=== PATIENT | female | born 1960 | race Caucasian/White ===

== ENCOUNTER 2016-03-29 14:19 | Emergency (ER) | payer BC ==
--- NOTE | 2016-03-29 14:39 | UC ---
Upper Extremity HPI - HPI Summary HPI Summary: complaint of left elbow that started 2 days ago has become red and swollen and has pain that radiates up her arm pain is on the outside around callous doesn't hurt with movement of joint both elbows have callouses from leaning on her desk denies fever and chills not taking any medications for pain - History of Current Complaint Chief Complaint: UCUpperExtremity Stated Complaint: LEFT ELBOW PAIN Time Seen by Provider: 03/29/16 14:24 Hx Obtained From: Patient Character: Aching - Allergies/Home Medications Allergies/Adverse Reactions: Allergies Allergy/AdvReac Type Severity Reaction Status Date / Time Coconut Oil Allergy Vomiting Verified 03/29/16 14:27 horseraddish Allergy Vomiting Uncoded 03/29/16 14:27 Home Medications: Home Medications Cetirizine* [ZyrTEC*] 10 mg PO DAILY PRN 03/29/16 [History Confirmed 03/29/16] Fluticasone NASAL SPRAY 50MCG* [Flonase NASAL SPRAY 50MCG*] 2 spray BOTH NARES DAILY PRN 03/29/16 [History Confirmed 03/29/16] PMH/Surg Hx/FS Hx/Imm Hx Previously Healthy: Yes - Surgical History Surgical History: Yes Surgery Procedure, Year, and Place: Appendectomy, 2010, [place] - Family History Known Family History: Positive: Diabetes - father Negative: Cardiac Disease, Hypertension - Social History Occupation: Employed Full-time Lives: With Family Alcohol Use: Daily Substance Use Type: None Smoking Status (MU): Heavy Every Day Tobacco Smoker Type: Cigarettes Amount Used/How Often: 1 PPD Length of Time of Smoking/Using Tobacco: 43 Years Have You Smoked in the Last Year: Yes Household Exposure Type: Cigarettes Cessation Counseling: Patient Advised to Stop - Immunization History Most Recent Influenza Vaccination: Not the 2016/2016 Season Review of Systems Constitutional: Negative Skin: Rash Eyes: Negative ENT: Negative Respiratory: Negative Cardiovascular: Negative Gastrointestinal: Negative Genitourinary: Negative Motor: Negative Neurovascular: Negative Musculoskeletal: Negative Neurological: Negative Psychological: Negative All Other Systems Reviewed And Are Negative: Yes Physical Exam Triage Information Reviewed: Yes Appearance: No Pain Distress, Well-Nourished Vital Signs: Initial Vital Signs Temp 98.7 F 03/29/16 14:25 Pulse 90 03/29/16 14:25 Resp 18 03/29/16 14:25 BP 126/77 03/29/16 14:25 Pulse Ox 98 03/29/16 14:25 Vital Signs Reviewed: Yes Eyes: Positive: Conjunctiva Clear ENT: Positive: Pharynx normal, Nasal congestion, TMs normal Neck: Positive: No Lymphadenopathy Respiratory: Positive: Lungs clear, Normal breath sounds, No respiratory distress Cardiovascular: Positive: RRR, No Murmur, Pulses Normal Abdomen Description: Positive: Nontender, Soft Bowel Sounds: Positive: Present Musculoskeletal: Positive: Other: - LUE- elbow callous with erythema- no fluctunat area beneath pain not increased with movement of elbow Neurological: Positive: Alert Psychological Exam: Normal Skin Exam: Normal Upper Extremity Course/Dx - Course Course Of Treatment: exam completed. infection appears to only involve the callous and not the joint. will treat with bactrim. if no improvement will followup with ortho d/t risk of joint involvement - Differential Dx/Diagnosis Differential Diagnosis/HQI/PQRI: Contusion, Septic Arthritis, Other - cellulitis Provider Diagnoses: cellulitis Discharge - Discharge Plan Condition: Stable Disposition: HOME Prescriptions: Sulfamethox/Trimethoprim DS* [Bactrim DS 800/160 TAB*] 1 tab PO BID #14 tab Patient Education Materials: Cellulitis (ED) Referrals: All Bower MD [Medical Doctor] - Additional Instructions: Please take antibiotic as directed. Increase fluids and rest Take acetaminophen for fever or pain Please review your discharge instructions. If your pain increase please call Venkat Bower for further evaluation and treatment If your symptoms do not improve please call your primary care provider or return to urgent care.
[2016-03-29 14:57] VITALS: BP 126/77
== END 2016-03-29 14:57 | disposition home or self-care (01) ==
LOC: UCCORT 14:19
DX: L03.114 Cellulitis of left upper limb (principal); F17.210 Nicotine dependence, cigarettes, uncomplicated
CPT/HCPCS: 99202; G0463

== ENCOUNTER 2018-04-04 11:32 | Emergency (ER) | payer BC ==
[2018-04-04 11:55] VITALS: BP 142/80
--- NOTE | 2018-04-04 12:14 | UC ---
Ear Complaint HPI - HPI Summary HPI Summary: Pt c/o bilateral ear fullness, pain, cough sinus and nasal congestion X 2 days. Has taken OTC sudafed X 2 in the last 2 days. - History of Current Complaint Chief Complaint: UCGeneralIllness Stated Complaint: LEFT EAR COMPLAINT Time Seen by Provider: 04/04/18 12:02 Hx Obtained From: Patient ?: No Onset/Duration: Sudden Onset Severity Initially: Mild Severity Currently: Moderate Pain Intensity: 4 Associated Signs/Symptoms: Positive: URI Symptoms Related History: Smoking - Allergies/Home Medications Allergies/Adverse Reactions: Allergies Allergy/AdvReac Type Severity Reaction Status Date / Time coconut oil Allergy Vomiting Verified 04/04/18 11:51 horseraddish Allergy Vomiting Uncoded 04/04/18 11:51 Home Medications: Home Medications Ibuprofen TAB* [Motrin TAB* 600 MG] 600 mg PO Q6H PRN 04/04/18 [History Confirmed 04/04/18] PMH/Surg Hx/FS Hx/Imm Hx Previously Healthy: No - Surgical History Surgical History: Yes Surgery Procedure, Year, and Place: Appendectomy, 2010, [place] - Family History Known Family History: Positive: Diabetes - father Negative: Cardiac Disease, Hypertension - Social History Occupation: Employed Full-time Lives: With Family Alcohol Use: Weekly Substance Use Type: None Smoking Status (MU): Heavy Every Day Tobacco Smoker Type: Cigarettes Amount Used/How Often: 1 PPD Length of Time of Smoking/Using Tobacco: 43 Years Have You Smoked in the Last Year: Yes Household Exposure Type: Cigarettes - Immunization History Most Recent Influenza Vaccination: Not the 2015/2016 Season Vaccination Up to Date: No Review of Systems All Other Systems Reviewed And Are Negative: Yes Constitutional: Positive: Fatigue Skin: Positive: Negative Eyes: Positive: Negative ENT: Positive: Nasal Discharge, Sinus Congestion, Sinus Pain/Tenderness Respiratory: Positive: Cough Cardiovascular: Positive: Negative Gastrointestinal: Positive: Negative Genitourinary: Positive: Negative Motor: Positive: Negative Neurovascular: Positive: Negative Musculoskeletal: Positive: Negative Neurological: Positive: Negative Psychological: Positive: Negative Is Patient Immunocompromised?: No Physical Exam Triage Information Reviewed: Yes Appearance: Ill-Appearing Vital Signs: Initial Vital Signs Temp 97.4 F 04/04/18 11:50 Pulse 85 04/04/18 11:50 Resp 17 04/04/18 11:50 BP 142/80 04/04/18 11:50 Pulse Ox 100 04/04/18 11:50 Vital Signs Reviewed: Yes Eye Exam: Normal ENT Exam: Other ENT: Positive: Nasal congestion, TM bulging, Sinus tenderness Dental Exam: Normal Neck exam: Normal Respiratory Exam: Normal Cardiovascular Exam: Normal Musculoskeletal Exam: Normal Neurological Exam: Normal Psychological Exam: Normal Skin Exam: Normal Ear Complaint Course/Dx - Differential Dx/Diagnosis Differential Diagnosis/HQI/PQRI: Otitis Media, URI Provider Diagnosis: Viral syndrome Discharge - Sign-Out/Discharge Documenting (check all that apply): Patient Departure All imaging exams completed and their final reports reviewed: No Studies - Discharge Plan Condition: Stable Disposition: HOME Prescriptions: Guaifenesin/Pseudo 600/60(NF) [Mucinex D 600/60 (NF)] 2 tab PO Q12H #28 tab Patient Education Materials: Earache (ED), Viral Syndrome (ED) Referrals: [facility] [Outside] - If Needed No Primary Care Phys,NOPCP [Primary Care Provider] - - Billing Disposition and Condition Condition: STABLE Disposition: Home - Attestation Statements Provider Attestation: Per institutional requirements, I have reviewed the chart, however, I was not consulted specifically or made aware of this patient by the midlevel provider. I did not personally evaluate, interact with , or disposition this patient.
== END 2018-04-04 12:20 | disposition home or self-care (01) ==
LOC: UCCORT 11:32
DX: B34.9 Viral infection, unspecified (principal); F17.210 Nicotine dependence, cigarettes, uncomplicated
CPT/HCPCS: 99212; G0463

== ENCOUNTER 2019-05-05 11:57 | Emergency (ER) | payer BC ==
[2019-05-05] MEDS ORDERED: Ibuprofen TAB* 600 MG PO ONE (12:48)
[2019-05-05 12:52] VITALS: BP 134/87
--- NOTE | 2019-05-05 13:24 | UC ---
Shoulder Pain HPI - HPI Summary HPI Summary: Patient was "extremely intoxicated" (her words) she feel on the stairs and landed on her left shoulder---unsure about LOC, does not think she hit her head left side of neck is sore-- nmc intact distally left arm---pain swelling and bruising left clavicle - History of Current Complaint Chief Complaint: UCUpperExtremity Stated Complaint: S/P FALL COLLARBONE Time Seen by Provider: 05/05/19 13:16 Hx Obtained From: Patient ?: No Onset/Duration: Sudden Onset, Lasting Days - 1 Timing: Constant Location Of Pain: Is Discrete @ - left clavicle and left side of neck Pain Intensity: 8 Pain Scale Used: 0-10 Numeric Character: Aching, Throbbing Aggravating Factor(s): Movement Associated Signs And Symptoms: Positive: Swelling, Bruising Related History: Dominant Hand Right - Allergies/Home Medications Allergies/Adverse Reactions: Allergies Allergy/AdvReac Type Severity Reaction Status Date / Time coconut oil Allergy Vomiting Verified 05/05/19 12:52 horseraddish Allergy Vomiting Uncoded 05/05/19 12:52 PMH/Surg Hx/FS Hx/Imm Hx Previously Healthy: No - Surgical History Surgical History: Yes Surgery Procedure, Year, and Place: Appendectomy, 2010, [place] - Family History Known Family History: Positive: Diabetes - father Negative: Cardiac Disease, Hypertension - Social History Occupation: Employed Full-time Lives: With Family Alcohol Use: Daily Alcohol Amount: 2-3 daily plus binges Substance Use Type: None Smoking Status (MU): Heavy Every Day Tobacco Smoker Type: Cigarettes Amount Used/How Often: 1 PPD Length of Time of Smoking/Using Tobacco: 43 Years Have You Smoked in the Last Year: Yes Household Exposure Type: Cigarettes - Immunization History Most Recent Influenza Vaccination: Not the 2016/2016 Season Vaccination Up to Date: No Review of Systems All Other Systems Reviewed And Are Negative: Yes Constitutional: Positive: Negative Skin: Positive: Bruising - left clavicle Eyes: Positive: Negative ENT: Positive: Negative Respiratory: Positive: Negative Cardiovascular: Positive: Negative Gastrointestinal: Positive: Negative Genitourinary: Positive: Negative Motor: Positive: Negative Neurovascular: Positive: Negative Musculoskeletal: Positive: Arthralgia - left clavicle Neurological/Mental Status: Positive: Negative Psychological: Positive: Negative Is Patient Immunocompromised?: No Physical Exam Triage Information Reviewed: Yes Appearance: Ill-Appearing - appears older than stated age, Pain Distress Vital Signs: Initial Vital Signs Temp 99.0 F 05/05/19 12:45 Pulse 86 05/05/19 12:45 Resp 18 05/05/19 12:45 BP 134/87 05/05/19 12:45 Pulse Ox 100 05/05/19 12:45 Vital Signs Reviewed: Yes Eye Exam: Normal Eyes: Positive: Conjunctiva Clear, Other: - perrla, eomi ENT Exam: Normal ENT: Positive: Normal ENT inspection, Hearing grossly normal, Pharynx normal, TMs normal, Uvula midline. Negative: Nasal congestion, Trismus, Muffled voice, Hoarse voice, Dental tenderness, Sinus tenderness Dental Exam: Normal Neck: Positive: Supple, No Lymphadenopathy, Tenderness @ - left side of neck Respiratory Exam: Normal Respiratory: Positive: Chest non-tender, Lungs clear, Normal breath sounds, No respiratory distress, No accessory muscle use Cardiovascular Exam: Normal Cardiovascular: Positive: RRR, No Murmur, Pulses Normal, Brisk Capillary Refill Musculoskeletal Exam: Other Musculoskeletal: Positive: Strength Limited @ - left shoulder, ROM Limited @ - left shoulder, Edema @ - left clavicle Neurological Exam: Normal Neurological: Positive: Alert, Muscle Tone Normal Psychological Exam: Normal Skin Exam: Normal Diagnostics - Radiology No standard instances Radiology Interpretation Completed By: Radiologist - 1. brain no acute changes 2 c5,6,7 likely chronic changes ( but does have clinical cooralation , distracting injury, KILEY and left lateral neck pain) 3. 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
== END 2019-05-05 15:08 | disposition short-term general hospital (02) ==
LOC: UCCORT 11:57
DX: S42.002A Fracture of unspecified part of left clavicle, initial encounter for closed fracture (principal); F10.10 Alcohol abuse, uncomplicated; F17.210 Nicotine dependence, cigarettes, uncomplicated; Z91.018 Allergy to other foods; W19.XXXA Unspecified fall, initial encounter; Y92.9 Unspecified place or not applicable
CPT/HCPCS: 70450; 72125; 72126; 99214; A9270-GY; G0463